=== PATIENT | female | born 2000 | race Caucasian/White ===

== ENCOUNTER 2019-02-12 13:23 | Emergency (ER) | payer SELFPAY ==
[~2019-02-12] VITALS: Wt 50.0 kg
[2019-02-12 13:34] VITALS: BP 131/58; PULSE 99; RESP 18
--- NOTE | 2019-02-12 15:45 | ERD ---
ER Documentation Chief Complaint Chief Complaint JOES ST JEANNINE ARIZA 18-year-old female, recently diagnosed with anxiety at [facility], presents to the emergency department, complaining of increased anxiety, associated with sore throat and shortness of breath. The patient has been taking only omeprazole for GERD. No history of asthma, no fever or chills, no rashes, no abdominal pain. ROS All systems reviewed and are negative except as per history of present illness. Allergies Allergies: Coded Allergies: No Known Allergy (Unverified , 02/12/19) PMhx/Soc Anxiety GERD/gastritis Medical and Surgical Hx: pt denies Surgical Hx Smoking Status: Never smoker FmHx Family History: No diabetes, No coronary disease Physical Exam Vitals Vital Signs Date Temp Pulse Resp B/P (MAP) Pulse Ox O2 O2 Flow FiO2 Time Delivery Rate 02/12/19 98.1 99 18 131/58 99 13:34 (82) Physical Exam Const: No acute distress Head: Atraumatic Eyes: Normal Conjunctiva ENT: Normal External Ears, Nose and Mouth. Neck: Full range of motion. No meningismus. Resp: Clear to auscultation bilaterally Cardio: Regular rate and rhythm, no murmurs Abd: Soft, non tender, non distended. Normal bowel sounds Skin: No petechiae or rashes Back: No midline or flank tenderness Ext: No cyanosis, or edema Neur: Awake and alert Psych: Normal Mood and Affect Results 24 hrs Current Medications Medications Dose Sig/Reyna Start Time Status Last (Trade) Ordered Route PRN Stop Time Admin Dose Reason Admin Lorazepam 1 mg ONCE ONCE 02/12/19 DC (Ativan) PO 16:00 02/12/19 16:02 Procedures/MDM Patient presents complaining of one episode today of chest pain, palpitations, shortness of breath and perioral paresthesias. Vital signs stable, Physical exam unremarkable, neurovascular exam intact. Differential diagnosis include but not limited to: Depression, anxiety, migraine, thyroid disease, electrolyte imbalance. Low suspicion for acute coronary event, aortic dissection, CVA. Physical examination and clinical presentation consistent most likely with anxiety. During the ED course the patient remained stable, no new complaints. The patient received treatment with lorazepam presenting overall improvement of the symptoms. Results and clinical impression discussed with patient who agrees with manag ement. The patient is stable to be treated outpatient and will be discharged home with a Rx for lorazepam, some side effects of prescribed medications (headache, rash, nausea, vomiting, diarrhea, drowsiness, habituation, bleeding, hypertension, interactions with other medications) were reviewed. The patient was instructed to follow up with the primary care provider in the next 48h. If symptoms persist, worsen or new symptoms develop, then patient should return to the ED immediately. Instructions explained and given directly by me to the patient with acknowledgment and demonstrated understanding. Disclaimer: Inadvertent spelling and grammatical errors are likely due to EHR/dictation software use and do not reflect on the overall quality of patient care. Also, please note that the electronic time recorded on this note does not necessarily reflect the actual time of the patient encounter. Departure Diagnosis: Primary Impression: Anxiety Condition: Stable Patient Instructions: Your Body's Response to Anxiety Additional Instructions: Muchas carolina por [facility] para quinonez servicio. Esperamos que en quinonez visita a la john de emergencia quinonez problema medico haya sido solucionado y que se sienta mucho mejor. Para estar seguros que quinonez mejoria sigue en proceso, le pedimos el favor de hacer augustine winston de seguimiento medico con quinonez doctor primario en los proximos 2-4 carpenter. Lleve con usted estos documentos y las medicinas recetadas. Si maury sintomas empeoran, NO SE ESPERE, por favor regrese a john de emergencia INMEDIATAMENTE. En bambi que usted no tenga un mdico de atencin primaria: Llame al mdico o clnica comunitaria de referencia que aparece abajo fabiola las horas de consultorio para hacer augustine winston para que le vean. CLINICAS: [facility] [phone] [facility] [phone] [facility] [phone] [facility] [phone] [facility] [phone] [id number] [facility] [phone] WESTLEY MINA MD Feb 12, 2019 15:45
[2019-02-12] MEDS ORDERED: LORAZEPAM 1 MG TAB PO ONE (16:00)
[2019-02-12] MEDS ORDERED: LORA-441 PO (16:12)
== END 2019-02-12 16:21 | disposition home or self-care (01) ==
LOC: FTE 13:23
DX: F41.9 Anxiety disorder, unspecified (principal)
CPT/HCPCS: 99283